=== PATIENT | female | born 1970 | race Hispanic/Latino ===

== ENCOUNTER 2017-07-14 15:23 | Emergency (ER) | payer SELFPAY ==
--- NOTE | 2017-07-14 19:06 | XRay Report ---
FINAL REPORT EXAM: XR FOOT 3+V LT HISTORY: left foot injury from a fall TECHNIQUE: 3 views Left foot PRIORS: None. FINDINGS: No fracture or dislocation identified. Joint spaces are within normal limits. No erosive bony change identified. No bony lesions are identified. IMPRESSION: Negative foot series
[2017-07-14 23:31] VITALS: BP 114/66
--- NOTE | 2017-07-15 00:03 | Emergency Department Report ---
ED Lower Extremity HPI - General Chief Complaint: Fall Stated Complaint: FALL Time Seen by Provider: 07/14/17 23:14 Source: patient, family Mode of arrival: Ambulatory Limitations: No Limitations - History of Present Illness Initial Comments: Patient reports that she injured left foot yesterday while she was walking her dog. She said she twisted her left foot and ankle and now she is having pain and swelling since yesterday. Denies any numbness or tingling. She reports pain is 10 out of 10 and aching. She says she took Motrin but it didn't help pain worsened walk-in and better with rest. Patient denies that she fall. MD Complaint: ankle injury, foot injury Onset/Timin -: days(s) Injury: Ankle: Left (pain and swelling), Foot: Left (Pain and swelling) Type of Injury: inversion Place: street/outdoors Severity: severe Severity scale (0 -10): 10 Improves With: immobilization, rest Worsens With: weight bearing, movement, palpation Context: walking Associated Symptoms: swelling, able to partially bear weight. denies: snap/pop sensation, numbness, tingling Treatments Prior to Arrival: NSAIDS - Related Data Home Medications Medication Instructions Recorded Confirmed Last Taken Naproxen [Naprosyn] 500 mg PO PRN PRN 07/14/17 07/14/17 07/14/17 Previous Rx's Medication Instructions Recorded Last Taken Type Ibuprofen [Motrin] 600 mg PO Q8H PRN #15 tablet 07/15/17 Unknown Rx Allergies Allergy/AdvReac Type Severity Reaction Status Date / Time gabapentin [From Neurontin] Allergy Swelling Verified 07/14/17 23:28 ED Review of Systems ROS: Stated complaint: FALL Other details as noted in HPI Comment: All other systems reviewed and negative Constitutional: no symptoms reported Respiratory: no symptoms reported Cardiovascular: denies: chest pain, palpitations, dyspnea on exertion, edema, syncope Gastrointestinal: denies: nausea, vomiting Musculoskeletal: joint swelling, arthralgia. denies: back pain, myalgia Skin: denies: rash Neurological: abnormal gait (left lower extremity from injury). denies: headache, weakness, numbness, paresthesias, vertigo ED Past Medical Hx - Past Medical History Previous Medical History?: Yes Hx Psychiatric Treatment: Yes (bipolar was on risperidone and pristiq, however no longer on medication) Hx Asthma: Yes Additional medical history: PULMONARY STENOSIS, - Surgical History Past Surgical History?: Yes Additional Surgical History: R ovary removed. foot OR. tosillectomy - Family History Family history: hypertension - Social History Smoking Status: Current Every Day Smoker Substance Use Type: Non Opiate Pain, Prescribed Other Social History: Lives with family - Medications Home Medications: Home Medications Medication Instructions Recorded Confirmed Last Taken Type Naproxen [Naprosyn] 500 mg PO PRN PRN 07/14/17 07/14/17 07/14/17 History Ibuprofen [Motrin] 600 mg PO Q8H PRN #15 tablet 07/15/17 Unknown Rx ED Physical Exam - General Limitations: No Limitations General appearance: alert, in no apparent distress - Head Head exam: Present: atraumatic, normocephalic, normal inspection - Eye Eye exam: Present: normal appearance, PERRL, EOMI Pupils: Present: normal accommodation - ENT ENT exam: Present: normal exam, normal orophraynx, mucous membranes moist - Neck Neck exam: Present: normal inspection, full ROM. Absent: tenderness, lymphadenopathy - Respiratory Respiratory exam: Present: normal lung sounds bilaterally. Absent: respiratory distress, chest wall tenderness - Cardiovascular Cardiovascular Exam: Present: regular rate, normal rhythm, normal heart sounds. Absent: systolic murmur, diastolic murmur - GI/Abdominal GI/Abdominal exam: Present: soft, normal bowel sounds. Absent: distended, tenderness - Extremities Exam Extremities exam: Present: full ROM (patient with full range of motion to left foot and ankle), tenderness, normal capillary refill, joint swelling, other ( bilateral lower extremity with 2+ pulses. No neurovascular compromise to her extremities.). Absent: pedal edema, calf tenderness - Expanded Lower Extremity Exam Left Hip exam: Present: normal inspection, full ROM, pelvic stability. Absent: tenderness, swelling, abrasion, laceration, ecchymosis, deformity, crepidus, dislocation, erythema, external rotation, internal rotation, shortening Upper Leg exam: Present: normal inspection, full ROM. Absent: tenderness, swelling, abrasion, laceration, ecchymosis, deformity, crepidus, dislocation, erythema Knee exam: Present: normal inspection, full ROM, full knee extension. Absent: tenderness, swelling, abrasion, laceration, ecchymosis, deformity, crepidus, dislocation, erythema, effusion, pain w/ pronation/supination, posterior draw sign, pain/laxity with valgus, pain/laxity with varus Lower Leg exam: Present: normal inspection, full ROM. Absent: tenderness, swelling, abrasion, laceration, ecchymosis, deformity, crepidus, dislocation, erythema, palpable cord, Felicitas's sign Ankle exam: Present: full ROM (patient with full range of motion but she reports pain with movement to ankle.), tenderness, swelling ( outer ankle with minimal swelling). Absent: normal inspection, abrasion, laceration, ecchymosis , deformity, crepidus, dislocation, erythema Foot/Toe exam: Present: full ROM (L range of motion to left foot due to injury) , tenderness (anterior left foot), swelling. Absent: normal inspection, abrasion, laceration, ecchymosis, deformity, crepidus, dislocation, erythema, amputation, puncture wound, foreign body, calcaneal tenderness, tenderness at base of 5th metatarsal, nail avulsion, subungual hematoma Neuro vascular tendon exam: Present: no vascular compromise, motor deficit (4/5 strength to the left foot). Absent: pulse deficit, abnormal cap refill, sensory deficit, tendon deficit, extremity cold to touch, pallor, abnormal 2- point discrimination, decreased fine/light touch, significant pain with passive ROM of distal joint Gait: Positive: antalgic - Back Exam Back exam: Present: normal inspection, full ROM. Absent: tenderness, CVA tenderness (R), CVA tenderness (L), muscle spasm, paraspinal tenderness, vertebral tenderness, rash noted - Neurological Exam Neurological exam: Present: alert, oriented X3, abnormal gait (patient unsteady on her left foot due to left foot and ankle sprain), motor sensory deficit ( left foot and ankle due to injury. 4/5 strength in left foot. Normal sensation to all extremities), reflexes normal ED Course Vital Signs 07/14/17 07/14/17 18:11 23:28 Temperature 98.4 F 98.2 F Pulse Rate 104 H 81 Respiratory 22 22 Rate Blood Pressure 121/98 Blood Pressure 114/66 [Left] O2 Sat by Pulse 96 98 Oximetry - Reevaluation(s) Reevaluation #1: 07/15/17 00:16 Patient given Oran 5/325 2 tablets in emergency room for pain. Osmani wrap applied to left foot and ankle and patient given crutches with training. - Orthopedic Splinting/Casting Injury #1 Side: left Lower Extremity Injury Location: ankle, foot Lower Extremity Immobilizer: Osmani wrap Other Orthopedic Equipment: crutches ED Lower Extremity MDM - Radiology Data Radiology results: report reviewed X-ray of left foot revealed no acute fracture or dislocation. - Medical Decision Making ED course: Here presents to the emergency room reports that she twisted her left foot and ankle yesterday after walking her dog outside. She denies that she fell. She reports pain to her left foot this radiated up her left ankle. Physical findings for swelling to left foot and limited range of motion. Patient with significant pain with passive range of motion and with weightbearing. She has left outer ankle swelling with minimal pain. X-ray of left foot reveal no fracture or dislocation. Patient with left ankle and foot sprain and arthralgia multiple sites secondary to injury from twisting her left foot and ankle. Patient was given Oran 5/325 mg 2 times in emergency room. Osmani wrap applied to site of left foot and ankle and patient given crutches with training and demonstrated use.RICE protocol explained. Patient discharged home with her family in stable condition .patient given prescription for Motrin and to follow-up with orthopedic doctor in 2 days. Critical care attestation.: If time is entered above; I have spent that time in minutes in the direct care of this critically ill patient, excluding procedure time. ED Disposition Clinical Impression: Arthralgia of multiple sites Sprain of left foot Qualifiers: Encounter type: initial encounter Qualified Code(s): S93.602A - Unspecified sprain of left foot, initial encounter Injury of ankle and foot Qualifiers: Encounter type: initial encounter Laterality: left Qualified Code(s): S99.912A - Unspecified injury of left ankle, initial encounter; S99.922A - Unspecified injury of left foot, initial encounter Left ankle sprain Qualifiers: Encounter type: initial encounter Involved ligament of ankle: unspecified ligament Qualified Code(s): S93.402A - Sprain of unspecified ligament of left ankle, initial encounter Disposition: TO HOME OR SELFCARE Is pt being admited?: No Does the pt Need Aspirin: No Condition: Stable Instructions: Ankle Sprain (ED), Foot Sprain (ED), Arthralgia (ED), RICE Therapy (ED), Crutch Instructions (ED) Additional Instructions: Increase fluid intake Take medication as prescribed . Referred to discharge instruction on splint care. Referred to discharge instruction in Rice therapy. These follow-up with orthopedic doctor as instructed. Please keep affected area clean and dry Prescriptions: Ibuprofen [Motrin] 600 mg PO Q8H PRN #15 tablet PRN Reason: Pain Referrals: ROBERT SCHULZ MD [Staff Physician] - 07/16/17 Forms: Accompanied Note, Work/School Release Form(ED)
[2017-07-15] MEDS ORDERED: NORCO 5/325 PO ONE (00:11)
== END 2017-07-15 00:29 | disposition home or self-care (01) ==
LOC: ED 15:23
DX: S93.602A Unspecified sprain of left foot, initial encounter (principal); S93.402A Sprain of unspecified ligament of left ankle, initial encounter; J45.909 Unspecified asthma, uncomplicated; F17.200 Nicotine dependence, unspecified, uncomplicated; Z88.8 Allergy status to other drugs, medicaments and biological substances; X50.1XXA Overexertion from prolonged static or awkward postures, initial encounter; Y93.89 Activity, other specified; Y92.89 Other specified places as the place of occurrence of the external cause; Y99.8 Other external cause status
CPT/HCPCS: 99284

== ENCOUNTER 2018-02-05 02:49 | Emergency (ER) | payer OTHER ==
[2018-02-05 03:45] LABS: Basophils # (Auto) 0.1 K/mm3 (0.0-0.1); Basophils % (Auto) 0.4 % (0.0-1.8); Eosinophils % (Auto) 0.2 % (0.0-4.3); Hematocrit 45.4 % (30.3-42.9); Hemoglobin 14.7 gm/dl (10.1-14.3); Lymphocytes # (Auto) 1.2 K/mm3 (1.2-5.4); Lymphocytes % (Auto) 9.7 % (13.4-35.0); Mean Corpuscular HGB Conc 33 % (30-34); Mean Corpuscular Hemoglobin 26 pg (28-32); Mean Corpuscular Volume 81 fl (79-97); Monocytes # (Auto) 0.7 K/mm3 (0.0-0.8); Monocytes % (Auto) 5.6 % (0.0-7.3); Platelet Count 195 K/mm3 (140-440); Red Blood Count 5.59 M/mm3 (3.65-5.03); Red Cell Distribution Width 13.5 % (13.2-15.2)
[2018-02-05 04:10] LABS: Alanine Aminotransferase 58 units/L (7-56); Albumin 3.9 g/dL (3.9-5); BUN/Creatinine Ratio 19; Blood Urea Nitrogen 17 mg/dL (7-17); Calcium 9.1 mg/dL (8.4-10.2); Hemolysis Index 4
[2018-02-05 05:25] LABS: Bilirubin,Urine NEG (Negative); Blood,Urine LG (Negative); Color,Urine Red (Yellow); Mucus,Urine 1+ /HPF; Urobilinogen,Urine < 2.0 mg/dL (<2.0)
[2018-02-05 05:30] LABS: RBC,Urine > 182.0 /HPF (0.0-6.0)
[2018-02-05] MEDS ORDERED: TORADOL IM ONE (05:47)
--- NOTE | 2018-02-05 06:50 | Cat Scan Report ---
FINAL REPORT EXAM: CT ABDOMEN PELVIS WO CON HISTORY: kidney stone TECHNIQUE: CT images obtained through the Abdomen and Pelvis without contrast. Transaxial,coronal and sagittal reformats are provided. PRIORS: None. FINDINGS: Imaged intrathoracic contents are unremarkable. Enlarged right kidney with moderate hydroureteronephrosis due to a ureterovesical junction measuring 7 x 5 x 5 millimeters. There is an additional 2 millimeter nonobstructive stone in the right collecting system. No left-sided stones or hydroureteronephrosis. The liver, gallbladder, pancreas, spleen, and adrenal glands demonstrate a normal noncontrast appearance. Hollow enteric organs are normal in course and caliber. Appendix is normal. No intra-abdominal free air/fluid or lymphadenopathy. Aorta is normal in course and caliber. Superficial soft tissues are unremarkable. No acute or aggressive appearing skeletal findings. IMPRESSION: Moderate right hydroureteronephrosis due to a 7 x 5 x 5 millimeter obstructing stone in the right ureterovesical junction.
--- NOTE | 2018-02-05 06:54 | Emergency Department Report ---
ED Abdominal Pain HPI - General Chief Complaint: Back Pain/Injury Stated Complaint: LEFT SIDE PAIN Time Seen by Provider: 02/05/18 04:50 Source: patient Mode of arrival: Ambulatory Limitations: No Limitations - History of Present Illness MD Complaint: abdominal pain Onset/Timin (day) -: Gradual Location: suprapubic, R flank Radiation: none Migration to: no migration Severity: severe Severity scale (0 -10): 9 Quality: sharp Consistency: constant Improves With: nothing Worsens With: nothing Associated Symptoms: nausea, other (decreased freq. of urination) - Related Data Home Medications Medication Instructions Recorded Confirmed Last Taken Naproxen [Naprosyn] 500 mg PO PRN PRN 07/14/17 07/14/17 07/14/17 Previous Rx's Medication Instructions Recorded Last Taken Type Ibuprofen [Motrin] 600 mg PO Q8H PRN #15 tablet 07/15/17 Unknown Rx HYDROcodone/APAP 5-325 [Bode 1 each PO Q8HR PRN #10 tablet 02/05/18 Unknown Rx 5/325] Levofloxacin [Levaquin TAB] 500 mg PO QDAY #10 tablet 02/05/18 Unknown Rx Tamsulosin HCl [Flomax] 0.4 mg PO HS #14 cap.er.24h 02/05/18 Unknown Rx Allergies Allergy/AdvReac Type Severity Reaction Status Date / Time gabapentin [From Neurontin] Allergy Swelling Verified 07/14/17 23:28 ED Review of Systems ROS: Stated complaint: LEFT SIDE PAIN Other details as noted in HPI Comment: All other systems reviewed and negative ED Past Medical Hx - Past Medical History Previous Medical History?: Yes Hx Psychiatric Treatment: Yes (bipolar was on risperidone and pristiq, however no longer on medication) Hx Asthma: Yes Additional medical history: PULMONARY STENOSIS, - Surgical History Past Surgical History?: Yes Additional Surgical History: R ovary removed. foot OR. tosillectomy - Social History Smoking Status: Current Every Day Smoker Substance Use Type: None - Medications Home Medications: Home Medications Medication Instructions Recorded Confirmed Last Taken Type Naproxen [Naprosyn] 500 mg PO PRN PRN 07/14/17 07/14/17 07/14/17 History Ibuprofen [Motrin] 600 mg PO Q8H PRN #15 tablet 07/15/17 Unknown Rx HYDROcodone/APAP 5-325 [Bode 1 each PO Q8HR PRN #10 tablet 02/05/18 Unknown Rx 5/325] Levofloxacin [Levaquin TAB] 500 mg PO QDAY #10 tablet 02/05/18 Unknown Rx Tamsulosin HCl [Flomax] 0.4 mg PO HS #14 cap.er.24h 02/05/18 Unknown Rx ED Physical Exam - General Limitations: No Limitations General appearance: alert, in no apparent distress - Head Head exam: Present: atraumatic, normocephalic - Eye Eye exam: Present: normal appearance - ENT ENT exam: Present: mucous membranes moist - Neck Neck exam: Present: normal inspection - Respiratory Respiratory exam: Present: normal lung sounds bilaterally. Absent: respiratory distress - Cardiovascular Cardiovascular Exam: Present: regular rate, normal rhythm. Absent: systolic murmur, diastolic murmur, rubs, gallop - GI/Abdominal GI/Abdominal exam: Present: soft, tenderness (suprapubic ttp), normal bowel sounds - Rectal Rectal exam: Present: deferred - Extremities Exam Extremities exam: Present: normal inspection - Back Exam Back exam: Present: normal inspection - Neurological Exam Neurological exam: Present: alert, oriented X3 - Psychiatric Psychiatric exam: Present: normal affect, normal mood - Skin Skin exam: Present: warm, dry, intact, normal color. Absent: rash ED Course Vital Signs 02/05/18 02/05/18 02/05/18 04:00 04:02 05:00 Temperature 97.8 F Pulse Rate 67 Respiratory 18 Rate Blood Pressure 146/66 142/64 Blood Pressure 153/80 [Left] O2 Sat by Pulse 93 97 Oximetry 02/05/18 06:35 Temperature Pulse Rate 73 Respiratory 16 Rate Blood Pressure Blood Pressure 138/79 [Left] O2 Sat by Pulse 99 Oximetry ED Medical Decision Making - Lab Data Result diagrams: 02/05/18 03:10 02/05/18 03:10 - Radiology Data Radiology results: report reviewed Critical care attestation.: If time is entered above; I have spent that time in minutes in the direct care of this critically ill patient, excluding procedure time. ED Disposition Clinical Impression: UTI (urinary tract infection), Kidney stone, Hydronephrosis Disposition: DC-01 TO HOME OR SELFCARE Is pt being admited?: No Does the pt Need Aspirin: No Condition: Stable Instructions: Kidney Stones (ED), Urinary Tract Infection in Women (ED) Additional Instructions: DRINK LOTS OF FLUIDS. TAKE MOTRIN FOR MILD TO MODERATE PAIN Prescriptions: HYDROcodone/APAP 5-325 [Bode 5/325] 1 each PO Q8HR PRN #10 tablet PRN Reason: Pain Levofloxacin [Levaquin TAB] 500 mg PO QDAY #10 tablet Tamsulosin HCl [Flomax] 0.4 mg PO HS #14 cap.er.24h Referrals: PRIMARY CAREMD [Primary Care Provider] - 3-5 Days DAT MURRAY MD [Staff Physician] - 2-3 Days Time of Disposition: 06:56 Print Language: MACEDONIAN
[2018-02-05 07:04] VITALS: BP 138/79
== END 2018-02-05 07:44 | disposition home or self-care (01) ==
LOC: ED 02:49
DX: N13.2 Hydronephrosis with renal and ureteral calculous obstruction (principal); N39.0 Urinary tract infection, site not specified; F31.9 Bipolar disorder, unspecified; J45.909 Unspecified asthma, uncomplicated; F17.200 Nicotine dependence, unspecified, uncomplicated; Z90.89 Acquired absence of other organs; Z90.721 Acquired absence of ovaries, unilateral; Z88.8 Allergy status to other drugs, medicaments and biological substances
CPT/HCPCS: 36415; 74176; 80053; 81001; 85025; 96372; 99284; J1885